=== PATIENT | female | born 1965 | race Caucasian/White ===

== ENCOUNTER 2018-04-01 08:45 | Emergency (ER) | payer OTHER, MEDICAID, SELFPAY ==
[2018-04-01 09:21] VITALS: BMI 31.6
[2018-04-01 09:25] VITALS: BP 134/86; PULSE 62; RESP 16; O2SAT 98
--- NOTE | 2018-04-01 09:26 | ED.UPPEXIN ---
HPI - Extremity Injury (Upper) General Chief Complaint: Extremity Injury, Upper Stated Complaint: Fell and injured L Arm Time Seen by Provider: 04/01/18 09:23 Source: patient Mode of arrival: ambulatory Limitations: no limitations History of Present Illness HPI narrative: 52-year-old female, active smoker with high blood pressure presents with left elbow pain after mechanical fall yesterday. She has increasing swelling and difficulty with range of motion secondary to pain. She denies other injury and is otherwise well and free of complaints. MD complaint: injury to: left and elbow Onset (ago): day(s) Other injuries: none Handedness: right Place: home Severity: moderate Relieving factors: rest Exacerbating factors: movement of extremity Context: direct blow Associated symptoms: denies other symptoms Related Data Home Medications Medication Instructions Recorded Confirmed atorvastatin 40 mg PO DAILY 04/01/18 04/01/18 levothyroxine 1 tab PO DAILY 04/01/18 04/01/18 lisinopril 10 mg PO BID 04/01/18 04/01/18 metoprolol tartrate 25 mg PO BID 04/01/18 04/01/18 nitroglycerin 1 tab SUBLINGUAL PRN PRN 04/01/18 04/01/18 omeprazole 1 tab PO DAILY 04/01/18 04/01/18 oxycodone 1 tab PO PRN PRN 04/01/18 04/01/18 paroxetine HCl 20 mg PO DAILY 04/01/18 04/01/18 Allergies Allergy/AdvReac Type Severity Reaction Status Date / Time amitriptyline AdvReac Unknown Verified 04/01/18 10:23 trazodone AdvReac Unknown Verified 04/01/18 10:23 Review of Systems Review of Systems All systems reviewed & are unremarkable except as noted in HPI and below Constitutional Denies chills, Denies fever(s), Denies lethargy and Denies weakness Eyes Denies change in vision, Denies eye discharge, Denies irritation and Denies loss of vision ENT Ears, Nose, Mouth, and Throat: Denies change in voice, Denies neck pain and Denies sore throat Cardiovascular Denies chest pain, Denies irregular heart rhythm, Denies lightheadedness, Denies palpitations, Denies dyspnea, Denies dyspnea on exertion and Denies orthopnea Respiratory Denies cough, Denies dyspnea, Denies dyspnea on exertion and Denies wheezing Gastrointestinal Gastrointestinal: Denies abdominal pain, Denies change in bowel habits, Denies diarrhea, Denies nausea and Denies vomiting Genitourinary Denies hematuria, Denies flank pain, Denies urinary incontinence and Denies urinary urgency Musculoskeletal Reports joint swelling, Reports limited range of motion and Denies neck pain Integumentary/Breasts Denies pruritus, Denies erythema, Denies rash and Denies wounds Neurologic Denies confusion, Denies loss of vision and Denies weakness Psychiatric Denies anxiety, Denies confusion, Denies depression, Denies homicidal ideation and Denies suicidal ideation Endocrine Denies palpitations Hematologic/Lymphatic Denies easy bruising Allergic/Immunologic Denies wheezing [facility] Social History Smoking Status: Current every day smoker Exam Narrative Exam Narrative: GENERAL: This is a well-nourished, well-developed patient, in mild distress. Obviously uncomfortable, clutching her left elbow HEAD: Atraumatic. Normocephalic. No temporal or scalp tenderness. EYES: Pupils equal round and reactive. Extraocular motions intact. No scleral icterus. No injection or drainage. ENT: Nose without bleeding, purulent drainage or septal hematoma. Throat without erythema, tonsillar hypertrophy or exudate. Uvula midline. Airway patent. NECK: Trachea midline. No JVD or lymphadenopathy. Supple, nontender, no meningeal signs. CARDIOVASCULAR: Regular rate and rhythm without murmurs, gallops, or rubs. RESPIRATORY: Clear to auscultation. Breath sounds equal bilaterally. No wheezes, rales, or rhonchi. GASTROINTESTINAL: Abdomen soft, non-tender, nondistended. No hepato-splenomegaly, or palpable masses. No guarding. EXTREMITIES: Decreased range of motion of left elbow secondary to pain. She is tender to palpation on most areas of palpation of her elbow. She does have notable swelling. This is closed, isolated and neurovascularly intact BACK: Nontender without deformity or crepitance. No flank tenderness. NEURO: AOx3. SKIN: No rash or erythema. Initial Vital Signs Initial Vital Signs: Vital Signs Pulse Rate 62 04/01/18 09:25 Respiratory Rate 16 04/01/18 09:25 Blood Pressure 134/86 04/01/18 09:25 Pulse Oximetry 98 04/01/18 09:25 Procedures Orthopedic Splinting/Casting Injury #1: Side: left Upper Extremity Injury Location: elbow Upper Extremity Immobilizer: sling/shoulder immobilizer MDM - Extremity Injury (Upper) Differential Diagnosis Differential diagnosis: Likely sprain and strain of wrist, fracture of wrist, fracture of hand, dislocation of shoulder, fracture of humerus and fracture of clavicle Medical Records Attestation: I reviewed the patient's medical records. Imaging Data Elbow / Humerus Xray: Radiologist's impression: [address] [address] XRay Report Signed Patient: Nancie Roland MMR#: [id number] : 1965Acct:[id number] Age/Sex: 52 / FDate of Service: 04/01/18 Loc: ED Accession Number: [id number] Procedure: XR elbow LT min 3V Ordering Provider: Mynor Henriquez D.O. PROCEDURE: XR ELBOW LT MIN 3V INDICATIONS: fall with left elbow pain TECHNIQUE: 3 views of the elbow were acquired. COMPARISON: None. FINDINGS: Bones: Small calcification is noted in a anterior aspect of elbow joint possibly involving anterior aspect of radial head versus coronoid process of proximal ulna suspicious for a small fracture in this area. No other fracture or dislocation is seen. No suspicious bony lesions. Soft tissues: There is displacement of anterior and posterior fat-pad consistent with small to moderate joint effusion. No suspicious soft tissue calcifications. IMPRESSION: Findings suggestive of subtle fracture involving coronoid process or anterior aspect of radial head. Small to moderate joint effusion. No dislocation. Dictated by: Graham Lombardo M.D. on 04/01/2018 at 9:52 Approved by: Graham Lombardo M.D. on 04/01/2018 at 10:[address] [address] XRay Report Signed Patient: Nancie Roland MMR#: [id number] : 1965Acct:[id number] Age/Sex: 52 / FDate of Service: 04/01/18 Loc: ED Accession Number: [id number] Procedure: XR humerus LT 2V Ordering Provider: Mynor Henriquez D.O. PROCEDURE: XR HUMERUS LT 2V INDICATIONS: PAIN TECHNIQUE: 2 views of the humerus were acquired. COMPARISON: [facility], , XR ELBOW LT MIN 3V, 04/01/2018, 9:18. FINDINGS: Bones: No fractures or dislocations. No suspicious bony lesions. Soft tissues: No suspicious soft tissue calcifications. IMPRESSION: No acute osseous abnormality of the left humerus is evident. Dictated by: Mack Arredondo M.D. on 04/01/2018 at 8:58 Approved by: Mack Arredondo M.D. on 04/01/2018 at 9:02 Discharge Plan Departure Patient Disposition: Home Clinical Impression: Left radial head fracture Discharge Date/Time: 04/01/18 11:09 Interventions: ED Discharge Assessment Last Done: 04/01/18 11:03 Instructions: DI for Elbow Fracture Activity Restrictions/Additional Instructions: *You have been diagnosed with [ likely left radial head fracture ] *What to do: * continue to take medications as directed *Follow up with your primary care provider or Orthopedics in 2-3 days, call for an appointment. Let them know you were seen in the Emergency Department and that we ask that you be seen in follow up *Return to ER if you should have any new, worsening or concerning symptoms Prescriptions: No Action atorvastatin 40 mg tablet 40 mg PO DAILY RF: 0 levothyroxine 175 mcg tablet 1 tab PO DAILY RF: 0 paroxetine HCl 20 mg tablet 20 mg PO DAILY RF: 0 lisinopril 10 mg tablet 10 mg PO BID RF: 0 nitroglycerin 0.4 mg tablet, sublingual 1 tab Sublingual PRN PRN (Reason: Chest Pain) RF: 0 oxycodone 5 mg tablet 1 tab PO PRN PRN (Reason: intermittent pain) RF: 0 metoprolol tartrate 25 mg tablet 25 mg PO BID RF: 0 omeprazole 20 mg tablet,delayed release (DR/EC) 1 tab PO DAILY RF: 0 Referrals: Clayton Galvin MD [Physician] - Justine Melton [Primary Care Provider] -
--- NOTE | 2018-04-01 09:37 | DI.RAD.S_ITS ---
PROCEDURE: XR ELBOW LT MIN 3V INDICATIONS: fall with left elbow pain TECHNIQUE: 3 views of the elbow were acquired. COMPARISON: None. FINDINGS: Bones: Small calcification is noted in a anterior aspect of elbow joint possibly involving anterior aspect of radial head versus coronoid process of proximal ulna suspicious for a small fracture in this area. No other fracture or dislocation is seen. No suspicious bony lesions. Soft tissues: There is displacement of anterior and posterior fat-pad consistent with small to moderate joint effusion. No suspicious soft tissue calcifications. IMPRESSION: Findings suggestive of subtle fracture involving coronoid process or anterior aspect of radial head. Small to moderate joint effusion. No dislocation. Dictated by: Graham Lombardo M.D. on 04/01/2018 at 9:52 Approved by: Graham Lombardo M.D. on 04/01/2018 at 10:01
--- NOTE | 2018-04-01 09:49 | DI.RAD.S_ITS ---
PROCEDURE: XR HUMERUS LT 2V INDICATIONS: PAIN TECHNIQUE: 2 views of the humerus were acquired. COMPARISON: [facility], CR, XR ELBOW LT MIN 3V, 04/01/2018, 9:18. FINDINGS: Bones: No fractures or dislocations. No suspicious bony lesions. Soft tissues: No suspicious soft tissue calcifications. IMPRESSION: No acute osseous abnormality of the left humerus is evident. Dictated by: Mack Arredondo M.D. on 04/01/2018 at 8:58 Approved by: Mack Arredondo M.D. on 04/01/2018 at 9:02
[2018-04-01 11:03] VITALS: BP 130/78; PULSE 66; RESP 16; O2SAT 98
--- NOTE | 2018-04-01 11:09 | PC.NURSE ---
Pt is given follow up with orthopedic nad for surgeons for lingering abd issues
--- NOTE | 2018-04-01 11:12 | PC.NURSE ---
Pts father was found to be wearing the SPO2 monitor. She wouldnt wear it so we didnt want it to beep. Monitor placed in standby mode and removed from father
--- NOTE | 2018-04-01 20:06 | ED_ITS ---
HPI - Extremity Injury (Upper) General Chief Complaint: Extremity Injury, Upper Stated Complaint: Fell and injured L Arm Time Seen by Provider: 04/01/18 09:23 Source: patient Mode of arrival: ambulatory Limitations: no limitations History of Present Illness HPI narrative: 52-year-old female, active smoker with high blood pressure presents with left elbow pain after mechanical fall yesterday. She has increasing swelling and difficulty with range of motion secondary to pain. She denies other injury and is otherwise well and free of complaints. MD complaint: injury to: left and elbow Onset (ago): day(s) Other injuries: none Handedness: right Place: home Severity: moderate Relieving factors: rest Exacerbating factors: movement of extremity Context: direct blow Associated symptoms: denies other symptoms Related Data Home Medications Medication Instructions Recorded Confirmed atorvastatin 40 mg PO DAILY 04/01/18 04/01/18 levothyroxine 1 tab PO DAILY 04/01/18 04/01/18 lisinopril 10 mg PO BID 04/01/18 04/01/18 metoprolol tartrate 25 mg PO BID 04/01/18 04/01/18 nitroglycerin 1 tab SUBLINGUAL PRN PRN 04/01/18 04/01/18 omeprazole 1 tab PO DAILY 04/01/18 04/01/18 oxycodone 1 tab PO PRN PRN 04/01/18 04/01/18 paroxetine HCl 20 mg PO DAILY 04/01/18 04/01/18 Allergies Allergy/AdvReac Type Severity Reaction Status Date / Time amitriptyline AdvReac Unknown Verified 04/01/18 10:23 trazodone AdvReac Unknown Verified 04/01/18 10:23 Review of Systems Review of Systems All systems reviewed & are unremarkable except as noted in HPI and below Constitutional Denies chills, Denies fever(s), Denies lethargy and Denies weakness Eyes Denies change in vision, Denies eye discharge, Denies irritation and Denies loss of vision ENT Ears, Nose, Mouth, and Throat: Denies change in voice, Denies neck pain and Denies sore throat Cardiovascular Denies chest pain, Denies irregular heart rhythm, Denies lightheadedness, Denies palpitations, Denies dyspnea, Denies dyspnea on exertion and Denies orthopnea Respiratory Denies cough, Denies dyspnea, Denies dyspnea on exertion and Denies wheezing Gastrointestinal Gastrointestinal: Denies abdominal pain, Denies change in bowel habits, Denies diarrhea, Denies nausea and Denies vomiting Genitourinary Denies hematuria, Denies flank pain, Denies urinary incontinence and Denies urinary urgency Musculoskeletal Reports joint swelling, Reports limited range of motion and Denies neck pain Integumentary/Breasts Denies pruritus, Denies erythema, Denies rash and Denies wounds Neurologic Denies confusion, Denies loss of vision and Denies weakness Psychiatric Denies anxiety, Denies confusion, Denies depression, Denies homicidal ideation and Denies suicidal ideation Endocrine Denies palpitations Hematologic/Lymphatic Denies easy bruising Allergic/Immunologic Denies wheezing [facility] Social History Smoking Status: Current every day smoker Exam Narrative Exam Narrative: GENERAL: This is a well-nourished, well-developed patient, in mild distress. Obviously uncomfortable, clutching her left elbow HEAD: Atraumatic. Normocephalic. No temporal or scalp tenderness. EYES: Pupils equal round and reactive. Extraocular motions intact. No scleral icterus. No injection or drainage. ENT: Nose without bleeding, purulent drainage or septal hematoma. Throat without erythema, tonsillar hypertrophy or exudate. Uvula midline. Airway patent. NECK: Trachea midline. No JVD or lymphadenopathy. Supple, nontender, no meningeal signs. CARDIOVASCULAR: Regular rate and rhythm without murmurs, gallops, or rubs. RESPIRATORY: Clear to auscultation. Breath sounds equal bilaterally. No wheezes , rales, or rhonchi. GASTROINTESTINAL: Abdomen soft, non-tender, nondistended. No hepato-splenomegaly , or palpable masses. No guarding. EXTREMITIES: Decreased range of motion of left elbow secondary to pain. She is tender to palpation on most areas of palpation of her elbow. She does have notable swelling. This is closed, isolated and neurovascularly intact BACK: Nontender without deformity or crepitance. No flank tenderness. NEURO: AOx3. SKIN: No rash or erythema. Initial Vital Signs Initial Vital Signs: Vital Signs Pulse Rate 62 04/01/18 09:25 Respiratory Rate 16 04/01/18 09:25 Blood Pressure 134/86 04/01/18 09:25 Pulse Oximetry 98 04/01/18 09:25 Procedures Orthopedic Splinting/Casting Injury #1: Side: left Upper Extremity Injury Location: elbow Upper Extremity Immobilizer: sling/shoulder immobilizer MDM - Extremity Injury (Upper) Differential Diagnosis Differential diagnosis: Likely sprain and strain of wrist, fracture of wrist, fracture of hand, dislocation of shoulder, fracture of humerus and fracture of clavicle Medical Records Attestation: I reviewed the patient's medical records. Imaging Data Elbow / Humerus Xray: Radiologist's impression: [address] [address] XRay Report Signed Patient: Nancie Roland MMR#: [id number] : 1965Acct:[id number] Age/Sex: 52 / FDate of Service: 04/01/18 Loc: ED Accession Number: [id number] Procedure: XR elbow LT min 3V Ordering Provider: Mynor Henriquez D.O. PROCEDURE: XR ELBOW LT MIN 3V INDICATIONS: fall with left elbow pain TECHNIQUE: 3 views of the elbow were acquired. COMPARISON: None. FINDINGS: Bones: Small calcification is noted in a anterior aspect of elbow joint possibly involving anterior aspect of radial head versus coronoid process of proximal ulna suspicious for a small fracture in this area. No other fracture or dislocation is seen. No suspicious bony lesions. Soft tissues: There is displacement of anterior and posterior fat-pad consistent with small to moderate joint effusion. No suspicious soft tissue calcifications. IMPRESSION: Findings suggestive of subtle fracture involving coronoid process or anterior aspect of radial head. Small to moderate joint effusion. No dislocation. Dictated by: Graham Lombardo M.D. on 04/01/2018 at 9:52 Approved by: Graham Lombardo M.D. on 04/01/2018 at 10:[address] [address] XRay Report Signed Patient: Nancie Roland MMR#: [id number] : 1965Acct:[id number] Age/Sex: 52 / FDate of Service: 04/01/18 Loc: ED Accession Number: [id number] Procedure: XR humerus LT 2V Ordering Provider: Mynor Henriquez D.O. PROCEDURE: XR HUMERUS LT 2V INDICATIONS: PAIN TECHNIQUE: 2 views of the humerus were acquired. COMPARISON: [facility], , XR ELBOW LT MIN 3V, 04/01/2018, 9:18. FINDINGS: Bones: No fractures or dislocations. No suspicious bony lesions. Soft tissues: No suspicious soft tissue calcifications. IMPRESSION: No acute osseous abnormality of the left humerus is evident. Dictated by: Mack Arredondo M.D. on 04/01/2018 at 8:58 Approved by: Mack Arredondo M.D. on 04/01/2018 at 9:02 Discharge Plan Departure Patient Disposition: Home Clinical Impression: Left radial head fracture Discharge Date/Time: 04/01/18 11:09 Interventions: ED Discharge Assessment Last Done: 04/01/18 11:03 Instructions: DI for Elbow Fracture Activity Restrictions/Additional Instructions: *You have been diagnosed with [ likely left radial head fracture ] *What to do: * continue to take medications as directed *Follow up with your primary care provider or Orthopedics in 2-3 days, call for an appointment. Let them know you were seen in the Emergency Department and that we ask that you be seen in follow up *Return to ER if you should have any new, worsening or concerning symptoms Prescriptions: No Action atorvastatin 40 mg tablet 40 mg PO DAILY RF: 0 levothyroxine 175 mcg tablet 1 tab PO DAILY RF: 0 paroxetine HCl 20 mg tablet 20 mg PO DAILY RF: 0 lisinopril 10 mg tablet 10 mg PO BID RF: 0 nitroglycerin 0.4 mg tablet, sublingual 1 tab Sublingual PRN PRN (Reason: Chest Pain) RF: 0 oxycodone 5 mg tablet 1 tab PO PRN PRN (Reason: intermittent pain) RF: 0 metoprolol tartrate 25 mg tablet 25 mg PO BID RF: 0 omeprazole 20 mg tablet,delayed release (DR/EC) 1 tab PO DAILY RF: 0 Referrals: Clayton Galvin MD [Physician] - Justine Melton [Primary Care Provider] -
== END 2018-04-01 11:09 | disposition home or self-care (01) ==
PROVIDERS: Emergency Provider Emergency Medicine; Family Provider Family Medicine; PCP Surgery
DX: S52.122A Displaced fracture of head of left radius, initial encounter for closed fracture (principal); W19.XXXA Unspecified fall, initial encounter
CPT/HCPCS: 73060; 73080; 99282; 99283

== ENCOUNTER → 2021-04-24 08:36 | Outpatient (CLI) | payer OTHER, MEDICAID, SELFPAY ==
[2021-04-24 18:40] LABS: Add Manual Diff / Slide Review NO; Basophils Absolute Auto 100 /uL (0-100); Eosinophils Absolute Auto 400 /uL (0-450); Eosinophils Percent Auto 5.4 % (2-4); Lymphocytes Absolute Auto 2100 /uL (1100-4500); Lymphocytes Percent Auto 25.4 % (25-40); Mean Corpuscular HGB Conc 33.2 % (30-36); Mean Corpuscular Hemoglobin 28.4 PG (26-34); Mean Corpuscular Volume 85.5 fL (80-100); Monocytes Absolute Auto 400 /uL (0-900); Monocytes Percent Auto 5.5 % (3-14); Neutrophils Absolute Auto 5100 /uL (1500-7000); Neutrophils Percent Auto 62.7 % (50-75); Platelet Count 244 X10^3/uL (150-400); Red Blood Cell Count 5.27 X10^6/uL (4.0-5.2); Red Cell Distribution Width 13.9 % (11.6-14.8); White Blood Cell Count 8.1 X10^3/uL (4.5-11.0)
[2021-04-24 18:57] LABS: Alanine Aminotransferase 16 IU/L (<35); Albumin 3.9 g/dL (3.5-5.0); Albumin Globulin Ratio 1.4 (1.0-2.8); Alkaline Phosphatase 78 U/L (38-126); Aspartate Aminotransferase 22 IU/L (14-36); BUN Creatinine Ratio 13.2 (6-22); Bilirubin Total 0.4 mg/dL (0.2-1.3); Blood Urea Nitrogen 10 mg/dL (7-17); Calcium 9.4 mg/dL (8.4-10.2); Carbon Dioxide 26 mmol/L (22-32); Chloride 108 mmol/L (98-107); Cholesterol 143 mg/dL (140-199); Estimated Glomerular Filt Rate > 60.0 mL/min (>60); Globulin 2.7 g/dL (1.7-4.1); Glucose 110 mg/dL (70-100); HDL Cholesterol 53 mg/dL (40-60); HEMOLYSIS 20 (0-50); LDL Cholesterol Calculated 64 mg/dL (<100); Potassium 4.3 mmol/L (3.4-5.1); Sodium 141 mmol/L (137-145); Total Protein 6.6 g/dL (6.3-8.2); Triglycerides 131 mg/dL (35-150)
[2021-04-24 19:59] LABS: Free T4, Direct Thyroxine 0.98 ng/dL (0.78-2.19)
== END ==
PROVIDERS: Family Provider Family Medicine; PCP Physician Assistant Medical; Visit Provider Family Medicine
DX: E03.9 Hypothyroidism, unspecified (principal); E78.5 Hyperlipidemia, unspecified; I10 Essential (primary) hypertension; I25.10 Atherosclerotic heart disease of native coronary artery without angina pectoris; R60.9 Edema, unspecified; Z95.1 Presence of aortocoronary bypass graft
CPT/HCPCS: 80053; 80061; 84439; 84443; 85025